=== PATIENT | female | born 1970 | race American Indian/Alaskan Native ===

== ENCOUNTER 2019-08-30 20:06 | Emergency (ER) | payer MEDICAID ==
--- NOTE | 2019-08-30 20:35 | Emergency Department Report ---
ED Altered Mental Status HPI - General Chief Complaint: Altered Mental Status Stated Complaint: ETOH/AMS PUI?: No Time Seen by Provider: 08/30/19 20:29 Source: EMS Mode of arrival: Ambulatory Limitations: Altered Mental Status, Other - History of Present Illness Initial Comments: Mrs. Gambino is a 49-year-old female with history of brain and lung cancer who presents with altered mental status via EMS. She was drinking alcohol with her . She became less responsive. Patient is currently nonverbal but moves all 4 extremities. Patient also took promethazine today according to EMS report. According to EMS, appeared to be inebriated. EMS reported that to registration staff member that patient and may be homeless. MD Complaint: altered mental status, decreased responsiveness -: Gradual Severity: severe Consistency of Symptoms: waxing and waning Context: other (Recent alcohol use history of brain cancer) - Related Data Allergies Allergy/AdvReac Type Severity Reaction Status Date / Time Unable to Assess Allergy Unverified 08/30/19 20:20 ED Review of Systems ROS: Stated complaint: ETOH/AMS Other details as noted in HPI Comment: Unobtainable due to pts medical conditions (Altered mental status) ED Past Medical Hx - Past Medical History Previous Medical History?: Yes Hx of Cancer: Yes (Lung and brain) ED Physical Exam - General Limitations: Other General appearance: appears intoxicated, lethargic, other (Appears to be protecting airway, moves purposely. Withdraws in pain.) - Head Head exam: Present: atraumatic, normocephalic - Eye Eye exam: Present: normal appearance - ENT ENT exam: Present: mucous membranes moist - Neck Neck exam: Present: normal inspection, full ROM - Respiratory Respiratory exam: Present: normal lung sounds bilaterally. Absent: respiratory distress, wheezes, rales, rhonchi - Cardiovascular Cardiovascular Exam: Present: regular rate, normal rhythm, normal heart sounds. Absent: systolic murmur, diastolic murmur, rubs, gallop - GI/Abdominal GI/Abdominal exam: Present: soft. Absent: distended, tenderness, guarding, rebound - Extremities Exam Extremities exam: Present: normal inspection - Back Exam Back exam: Present: normal inspection - Neurological Exam Neurological exam: Present: altered - Psychiatric Psychiatric exam: Present: flat affect - Skin Skin exam: Present: warm, dry, intact, normal color. Absent: rash ED Course Vital Signs 08/30/19 08/30/19 08/30/19 20:31 21:38 21:44 Temperature 98.5 F 122.0 F H 97.5 F L Pulse Rate 105 H 102 H 102 H Respiratory 14 16 16 Rate Blood Pressure 104/71 96/59 Blood Pressure 96/59 [Left] O2 Sat by Pulse 96 97 97 Oximetry 08/31/19 01:06 Temperature 97.5 F L Pulse Rate 90 Respiratory 18 Rate Blood Pressure 98/73 Blood Pressure [Left] O2 Sat by Pulse 100 Oximetry - Reevaluation(s) Reevaluation #1: 08/30/19 22:58 I reassessed patient after reviewing CT images and radiology impression. Patient is arousable. She pushes my hand away. She says "no". - Lab Data Result diagrams: 08/30/19 20:29 08/30/19 20:29 Lab Results 08/30/19 08/30/19 08/30/19 Range/Units 20:29 20:29 20:29 WBC 6.7 (4.5-11.0) K/mm3 RBC 3.14 L (3.65-5.03) M/mm3 Hgb 8.9 L (10.1-14.3) gm/dl Hct 28.2 L (30.3-42.9) % MCV 90 (79-97) fl MCH 29 (28-32) pg MCHC 32 (30-34) % RDW 19.9 H (13.2-15.2) % Plt Count 798 H (140-440) K/mm3 Lymph % (Auto) 19.2 (13.4-35.0) % Stephens % (Auto) 8.7 H (0.0-7.3) % Eos % (Auto) 9.0 H (0.0-4.3) % Baso % (Auto) 2.7 H (0.0-1.8) % Lymph # 1.3 (1.2-5.4) K/mm3 Stephens # 0.6 (0.0-0.8) K/mm3 Eos # 0.6 H (0.0-0.4) K/mm3 Baso # 0.2 H (0.0-0.1) K/mm3 Seg Neutrophils % 60.4 (40.0-70.0) % Seg Neutrophils # 4.1 (1.8-7.7) K/mm3 Sodium 135 L (137-145) mmol/L Potassium 3.9 (3.6-5.0) mmol/L Chloride 99.4 (98-107) mmol/L Carbon Dioxide 19 L (22-30) mmol/L Anion Gap 21 mmol/L BUN 6 L (7-17) mg/dL Creatinine 0.5 L (0.7-1.2) mg/dL Estimated GFR > 60 ml/min BUN/Creatinine Ratio 12 % Glucose 74 (65-100) mg/dL POC Glucose (70-105) Calcium 8.4 (8.4-10.2) mg/dL HCG, Qual (Negative) Salicylates < 0.3 L (2.8-20.0) mg/dL Acetaminophen (10.0-30.0) ug/mL Plasma/Serum Alcohol (0-0.07) % 08/30/19 08/30/19 08/30/19 Range/Units 20:29 20:29 20:29 WBC (4.5-11.0) K/mm3 RBC (3.65-5.03) M/mm3 Hgb (10.1-14.3) gm/dl Hct (30.3-42.9) % MCV (79-97) fl MCH (28-32) pg MCHC (30-34) % RDW (13.2-15.2) % Plt Count (140-440) K/mm3 Lymph % (Auto) (13.4-35.0) % Stephens % (Auto) (0.0-7.3) % Eos % (Auto) (0.0-4.3) % Baso % (Auto) (0.0-1.8) % Lymph # (1.2-5.4) K/mm3 Stephens # (0.0-0.8) K/mm3 Eos # (0.0-0.4) K/mm3 Baso # (0.0-0.1) K/mm3 Seg Neutrophils % (40.0-70.0) % Seg Neutrophils # (1.8-7.7) K/mm3 Sodium (137-145) mmol/L Potassium (3.6-5.0) mmol/L Chloride (98-107) mmol/L Carbon Dioxide (22-30) mmol/L Anion Gap mmol/L BUN (7-17) mg/dL Creatinine (0.7-1.2) mg/dL Estimated GFR ml/min BUN/Creatinine Ratio % Glucose (65-100) mg/dL POC Glucose (70-105) Calcium (8.4-10.2) mg/dL HCG, Qual Negative (Negative) Salicylates (2.8-20.0) mg/dL Acetaminophen < 5.0 L (10.0-30.0) ug/mL Plasma/Serum Alcohol 0.14 H (0-0.07) % 08/30/19 08/31/19 Range/Units 20:50 00:08 WBC (4.5-11.0) K/mm3 RBC (3.65-5.03) M/mm3 Hgb (10.1-14.3) gm/dl Hct (30.3-42.9) % MCV (79-97) fl MCH (28-32) pg MCHC (30-34) % RDW (13.2-15.2) % Plt Count (140-440) K/mm3 Lymph % (Auto) (13.4-35.0) % Stephens % (Auto) (0.0-7.3) % Eos % (Auto) (0.0-4.3) % Baso % (Auto) (0.0-1.8) % Lymph # (1.2-5.4) K/mm3 Stephens # (0.0-0.8) K/mm3 Eos # (0.0-0.4) K/mm3 Baso # (0.0-0.1) K/mm3 Seg Neutrophils % (40.0-70.0) % Seg Neutrophils # (1.8-7.7) K/mm3 Sodium (137-145) mmol/L Potassium (3.6-5.0) mmol/L Chloride (98-107) mmol/L Carbon Dioxide (22-30) mmol/L Anion Gap mmol/L BUN (7-17) mg/dL Creatinine (0.7-1.2) mg/dL Estimated GFR ml/min BUN/Creatinine Ratio % Glucose (65-100) mg/dL POC Glucose 72 (70-105) Calcium (8.4-10.2) mg/dL HCG, Qual (Negative) Salicylates (2.8-20.0) mg/dL Acetaminophen (10.0-30.0) ug/mL Plasma/Serum Alcohol 0.07 (0-0.07) % Laboratory Results - last 24 hr 08/30/19 08/30/19 08/30/19 20:29 20:29 20:29 WBC 6.7 RBC 3.14 L Hgb 8.9 L Hct 28.2 L MCV 90 MCH 29 MCHC 32 RDW 19.9 H Plt Count 798 H Lymph % (Auto) 19.2 Stephens % (Auto) 8.7 H Eos % (Auto) 9.0 H Baso % (Auto) 2.7 H Lymph # 1.3 Stephens # 0.6 Eos # 0.6 H Baso # 0.2 H Seg Neutrophils % 60.4 Seg Neutrophils # 4.1 Sodium 135 L Potassium 3.9 Chloride 99.4 Carbon Dioxide 19 L Anion Gap 21 BUN 6 L Creatinine 0.5 L Estimated GFR > 60 BUN/Creatinine Ratio 12 Glucose 74 POC Glucose Calcium 8.4 HCG, Qual Salicylates < 0.3 L Acetaminophen Plasma/Serum Alcohol 08/30/19 08/30/19 08/30/19 20:29 20:29 20:29 WBC RBC Hgb Hct MCV MCH MCHC RDW Plt Count Lymph % (Auto) Stephens % (Auto) Eos % (Auto) Baso % (Auto) Lymph # Stephens # Eos # Baso # Seg Neutrophils % Seg Neutrophils # Sodium Potassium Chloride Carbon Dioxide Anion Gap BUN Creatinine Estimated GFR BUN/Creatinine Ratio Glucose POC Glucose Calcium HCG, Qual Negative Salicylates Acetaminophen < 5.0 L Plasma/Serum Alcohol 0.14 H 08/30/19 08/31/19 20:50 00:08 WBC RBC Hgb Hct MCV MCH MCHC RDW Plt Count Lymph % (Auto) Stephens % (Auto) Eos % (Auto) Baso % (Auto) Lymph # Stephens # Eos # Baso # Seg Neutrophils % Seg Neutrophils # Sodium Potassium Chloride Carbon Dioxide Anion Gap BUN Creatinine Estimated GFR BUN/Creatinine Ratio Glucose POC Glucose 72 Calcium HCG, Qual Salicylates Acetaminophen Plasma/Serum Alcohol 0.07 - EKG Data EKG shows normal: sinus rhythm, axis, intervals, QRS complexes, ST-T waves (No ST elevation) Rate: tachycardia Interpretation: nonspecific ST-T wave enedelia - Radiology Data Radiology results: report reviewed Radiology impression CT head: Multiple hyperdense masses of varying size left parietal bilateral frontal lobe left basal ganglia with associated edema, associated edema is most notable along the left parietal lobe Impression: Multifocal brain metastatic disease - Medical Decision Making This is a 49-year-old female who presents with altered mental status. History of advance stage lung cancer with metastasis to brain. Patient did have evidence of acute alcohol intoxication. However after observation she is a rousable but gives limited information. She appears drowsy and intoxicated. She is mumbling words. She was able to say, " I got to pee". Reported history of promethazine ingestion as well as alcohol. Patient does have metastatic brain lesions with associated edema. Unclear if patient is receiving aggressive oncological care or has chosen palliative care. CT head: Reveals associated edema with brain metastases without midline shift or hemorrhage. Edema could account for decreased cognitive function. However, it appears patient's presentation of decreased LOC seems quite acute. Mental status appears to be improving. I have ordered IV dexamethasone which is treatment of edema associated with brain metastases. Patient on multiple reexaminations. Her mental status is improving. Her speech is more clear. She was able to tell me that she she receives medical care at [facility]. I spoke with transfer nurse Sirena at [facility]. With review of electronic record at [facility], transfer nurse was unable to find any documentation or affiliation medically with this patient. From EMS we only received name date of . We do not have identification for patient. Awaiting contact with to make further treatment decisions. Unfortunately we do not have appropriate demographic information to contact or receive outside records. Awaiting case management consultation for assistance. Patient will need observation until awake considering multiple ingestions including alcohol and promethazine. Mental status has improved. Charge nurse informed me that patient awakened and asked for a phone to call her niece. Still awaiting collateral history and sobriety for patient. Repeat BAL 0.07 On last examination. Patient was ambulatory without difficulty. She is alert and oriented x4. Charge nurse provided discharge instructions. Critical Care Time: Yes Critical care time in (mins) excluding proc time.: 40 Critical care attestation.: If time is entered above; I have spent that time in minutes in the direct care of this critically ill patient, excluding procedure time. 40 minutes of critical care time excluding procedures were used in the care of the patient. I reviewed electronic record. I discussed treatment plan with the nursing team members at the bedside. I came immediately to the bedside upon patient's arrival. Patient required multiple interventions and reassessments. ED Disposition Clinical Impression: Acute alcohol intoxication, Metastatic lung carcinoma, Brain metastases Disposition: DC- TO HOME OR SELFCARE Is pt being admited?: No Does the pt Need Aspirin: No Condition: Stable Referrals: JOSE LOTT MD [Primary Care Provider] - 3-5 Days
[2019-08-30 21:00] LABS: Basophils # (Auto) 0.2 K/mm3 (0.0-0.1); Basophils % (Auto) 2.7 % (0.0-1.8); Eosinophils # (Auto) 0.6 K/mm3 (0.0-0.4); Hematocrit 28.2 % (30.3-42.9); Hemoglobin 8.9 gm/dl (10.1-14.3); Lymphocytes # (Auto) 1.3 K/mm3 (1.2-5.4); Lymphocytes % (Auto) 19.2 % (13.4-35.0); Mean Corpuscular HGB Conc 32 % (30-34); Mean Corpuscular Volume 90 fl (79-97); Monocytes # (Auto) 0.6 K/mm3 (0.0-0.8); Monocytes % (Auto) 8.7 % (0.0-7.3); Platelet Count 798 K/mm3 (140-440); Red Blood Count 3.14 M/mm3 (3.65-5.03); Red Cell Distribution Width 19.9 % (13.2-15.2)
[2019-08-30 21:01] LABS: BUN/Creatinine Ratio 12; Blood Urea Nitrogen 6 mg/dL (7-17); Calcium 8.4 mg/dL (8.4-10.2); Hemolysis Index 12
[2019-08-30] MEDS ORDERED: SODIUM CHLORIDE 0.9% 500 ML 500 ML IV ONE (21:15)
--- NOTE | 2019-08-30 22:35 | Cat Scan Report ---
CT HEAD WITHOUT CONTRAST INDICATION : Altered mental status, history of lung cancer with brain metastases. TECHNIQUE: Axial, coronal and sagittal CT imaging was performed from the skull apex through the skul l base without contrast. All CT scans at this location are performed using CT dose reduction for ALA RA by means of automated exposure control. COMPARISON: None available. FINDINGS: PARENCHYMA: Multiple hyperdense masses of varying size are seen along the left parietal and bilatera l frontal lobes and the left basal ganglia with associated edema. Associated edema is most notable al eric the left parietal lobe where there is a lesion measuring 1.6 x 1.4 cm on image 23 of series 2. No hemorrhage, midline shift or extra-axial collection. VENTRICLES: Symmetric and normal in size. SOFT TISSUES: No significant abnormality of the included soft tissues/orbits. BONES: No acute osseous abnormality. SINUSES: No significant abnormality. ADDITIONAL FINDINGS: None. IMPRESSION: Multifocal brain metastases as above. No other acute intracranial abnormality. Signer Name: Ritchie Mccormack MD Signed: 08/30/2019 10:31 PM Workstation Name: [id number]
[2019-08-30] MEDS ORDERED: DEXTROSE 50% IN WATER (25GM) 50 ML SYRINGE IV ONE (23:27)
[2019-08-30] MEDS ORDERED: dexAMETHasone 20 MG/5 ML VIAL IV STA (23:40)
[2019-08-30] MEDS ORDERED: dexAMETHasone 20 MG/5 ML VIAL IV ONE (23:55)
[2019-08-31 01:11] VITALS: BP 98/73
[2019-08-31] MEDS ORDERED: dexAMETHasone 4 MG/ML VIAL IV SCH (06:00)
== END 2019-08-31 02:52 | disposition home or self-care (01) ==
LOC: ED 20:06
DX: F10.120 Alcohol abuse with intoxication, uncomplicated (principal); C34.90 Malignant neoplasm of unspecified part of unspecified bronchus or lung; C79.31 Secondary malignant neoplasm of brain
CPT/HCPCS: 36415; 70450; 80048; 82962; 84703; 85025; 93005; 99285; J7040; 80320; G0480